=== PATIENT | female | born 1995 | race Caucasian/White ===

== ENCOUNTER → 2017-10-26 | Outpatient (CLI) | payer MEDICAID ==
--- NOTE | 2017-10-27 09:06 | XR ---
Left wrist HISTORY: Left wrist pain 4 views of the left wrist Bone mineralization, joint spaces and alignment are maintained. No fracture or dislocation. IMPRESSION: No bone abnormality. Consider wrist MRI.
== END | disposition home or self-care (01) ==
LOC: RADXRMAIN 16:06
PROVIDERS: ATTEND Family Medicine
DX: S63.502A Unspecified sprain of left wrist, initial encounter (principal)

== ENCOUNTER 2018-02-24 06:53 | Inpatient (IN) | payer OTHER ==
[2018-02-24] MEDS ORDERED: HYDROmorphone 1 MG/ML 1 ML SYRINGE IVP STA ×2 (07:11→07:40)
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
[2018-02-24 08:11] LABS: Basophils % (A) 1 %; Eosinophils # (A) 0.3 k/uL (0-0.7); Eosinophils % (A) 4 %; HCT 43.3 % (34.0-46.0); HGB 13.9 gm/dL (11.4-16.0); Lymphocytes # (A) 2.2 k/uL (1.0-4.8); Lymphocytes % (A) 33 %; MCH 28.5 pg (25.0-35.0); MCHC 32.2 g/dL (31.0-37.0); MCV 88.5 fL (80.0-100.0); Mean Platelet Volume 6.8; Monocytes # (A) 0.5 k/uL (0-1.0); Monocytes % (A) 8 %; Neutrophils # (A) 3.4 k/uL (1.3-7.7); Neutrophils % (A) 52 %; Platelet Count 328 k/uL (150-450); RBC 4.89 m/uL (3.80-5.40); RDW 12.9 % (11.5-15.5); WBC 6.6 k/uL (3.8-10.6)
[2018-02-24 08:16] LABS: Partial Thromboplastin Time 22.9 sec (22.0-30.0)
[2018-02-24 08:17] LABS: ALT 66 U/L (9-52); AST 107 U/L (14-36); Albumin 3.9 g/dL (3.5-5.0); Alcohol <10 mg/dL; Alkaline Phosphatase 94 U/L (38-126); Anion Gap 5 mmol/L; Blood Urea Nitrogen 14 mg/dL (7-17); Calcium 8.9 mg/dL (8.4-10.2); Carbon Dioxide 29 mmol/L (22-30); Chloride 104 mmol/L (98-107); Glucose 90 mg/dL (74-99); Potassium 4.7 mmol/L (3.5-5.1); Sodium 138 mmol/L (137-145); Total Bilirubin 0.4 mg/dL (0.2-1.3)
[2018-02-24] MEDS ORDERED: ACETAMINOPHEN IV (For NPO) 1,000 MG in EMPTY BAG 1 BAG IVPB STA (08:27)
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
[2018-02-24 08:38] LABS: Creatine Kinase 1099 U/L (30-135); Creatine Kinase MB 1.2 ng/mL (0.0-2.4); Troponin I <0.012 ng/mL (0.000-0.034)
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
[2018-02-24] MEDS ORDERED: NALOXONE 0.4 MG/ML 1 ML VIAL IV PRN (09:02)
[2018-02-24] MEDS ORDERED: HYDROmorphone 1 MG/ML 1 ML SYRINGE IVP PRN (09:02)
[2018-02-24] MEDS ORDERED: PANTOPRAZOLE 40 MG/10 ML VIAL IV SCH (09:15)
[2018-02-24 10:04] VITALS: BMI 21.4
[2018-02-24] MEDS: SODIUM CHLORIDE 0.9% 1,000 ML IV SCH (10:13)
[2018-02-24 10:24] LABS: Appearance,Urine Clear (Clear); Bilirubin,Urine Negative (Negative); Blood,Urine Negative (Negative); Color,Urine Yellow; Glucose,Urine (UA) Negative (Negative); Ketones,Urine Negative (Negative); Leukocyte Esterase,Urine Negative (Negative); Nitrite,Urine Negative (Negative); Protein,Urine Negative (Negative); Urobilinogen,Urine <2.0 mg/dL (<2.0)
[2018-02-24 10:32] LABS: Amphetamine Screen,Urine Detected (NotDetected); Barbiturate Screen,Urine Not Detected (NotDetected); Benzodiazepines Screen,Urine Not Detected (NotDetected); Cocaine Screen,Urine Not Detected (NotDetected); Methadone Screen, Urine Not Detected (NotDetected); Opiate Screen,Urine Detected (NotDetected); Oxycodone Screen, Urine Not Detected (NotDetected); Phencyclidine Screen,Urine Not Detected (NotDetected); Tricyclic Antidepressant,Urine Not Detected (NotDetected); Urn Cannabinoid Scrn Detected (NotDetected)
[2018-02-24 10:45] LABS: Specific Gravity,Urine 1.047 (1.001-1.035)
[2018-02-24] MEDS: HYDROmorphone 1 MG/ML 1 ML SYRINGE IVP PRN ×5 (10:48→22:36)
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
[2018-02-24] MEDS: ONDANSETRON 4 MG/2 ML VIAL IVP PRN (15:05)
[2018-02-24] MEDS: ACETAMINOPHEN TAB 325 MG TAB PO PRN (16:14)
[2018-02-25] MEDS: HYDROmorphone 1 MG/ML 1 ML SYRINGE IVP PRN ×9 (00:56→23:05)
[2018-02-25] MEDS: ACETAMINOPHEN TAB 325 MG TAB PO PRN (06:50)
[2018-02-25] MEDS: PANTOPRAZOLE 40 MG TABLET PO SCH (06:51)
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
[2018-02-25] MEDS: traMADol 50 MG TAB PO PRN ×2 (10:59→19:57)
[2018-02-25] MEDS: SODIUM CHLORIDE 0.9% 1,000 ML IV SCH (11:00)
[2018-02-25] MEDS: ONDANSETRON 4 MG/2 ML VIAL IVP PRN (12:45)
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
[2018-02-26] MEDS: HYDROmorphone 1 MG/ML 1 ML SYRINGE IVP PRN ×8 (01:26→23:29)
[2018-02-26] MEDS: ACETAMINOPHEN TAB 325 MG TAB PO PRN ×3 (01:27→23:30)
[2018-02-26] MEDS: PANTOPRAZOLE 40 MG TABLET PO SCH (08:03)
[2018-02-26] MEDS: SODIUM CHLORIDE 0.9% 1,000 ML IV SCH (10:33)
[2018-02-26] MEDS: ADDERALL PO SCH (10:33)
[2018-02-26] MEDS: traMADol 50 MG TAB PO PRN (10:42)
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
[2018-02-27] MEDS: HYDROmorphone 1 MG/ML 1 ML SYRINGE IVP PRN ×7 (01:46→20:23)
[2018-02-27] MEDS: traMADol 50 MG TAB PO PRN ×2 (02:55→10:58)
[2018-02-27] MEDS: ACETAMINOPHEN TAB 325 MG TAB PO PRN ×3 (05:08→17:07)
[2018-02-27] MEDS: ADDERALL PO SCH (07:59)
[2018-02-27] MEDS: SODIUM CHLORIDE 0.9% 1,000 ML IV SCH (08:00)
[2018-02-27] MEDS: PANTOPRAZOLE 40 MG TABLET PO SCH (09:17)
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
[2018-02-27] MEDS ORDERED: MORPHINE SULFATE 4 MG/ML SYRINGE IV PRN (17:57)
[2018-02-27] MEDS ORDERED: ONDANSETRON 4 MG/2 ML VIAL IVP PRN (17:57)
[2018-02-27] MEDS ORDERED: DEXAMETHASONE SOD PHOSPHATE 10 MG/ML 1 ML VIAL IV ONE (17:57)
[2018-02-27] MEDS ORDERED: ONDANSETRON 4 MG/2 ML VIAL IVP ONE (17:57)
[2018-02-27] MEDS ORDERED: CALCIUM CARBONATE 500 MG CHEWABLE PO PRN (20:19)
[2018-02-27] MEDS: ONDANSETRON 4 MG/2 ML VIAL IVP PRN (21:12)
[2018-02-28] MEDS: HYDROmorphone 1 MG/ML 1 ML SYRINGE IVP PRN ×6 (01:00→22:20)
[2018-02-28] MEDS: SODIUM CHLORIDE 0.9% 1,000 ML IV SCH ×4 (06:59→23:01)
[2018-02-28] MEDS: PANTOPRAZOLE 40 MG TABLET PO SCH (08:19)
[2018-02-28] MEDS: ADDERALL PO SCH (08:20)
[2018-02-28 10:41] LABS: Basophils % (A) 0 %; Eosinophils # (A) 0.2 k/uL (0-0.7); Eosinophils % (A) 2 %; HCT 40.2 % (34.0-46.0); HGB 13.3 gm/dL (11.4-16.0); Lymphocytes # (A) 1.6 k/uL (1.0-4.8); Lymphocytes % (A) 23 %; MCH 28.9 pg (25.0-35.0); MCHC 33.1 g/dL (31.0-37.0); MCV 87.5 fL (80.0-100.0); Mean Platelet Volume 6.2; Monocytes # (A) 0.5 k/uL (0-1.0); Monocytes % (A) 7 %; Neutrophils # (A) 4.6 k/uL (1.3-7.7); Neutrophils % (A) 66 %; Platelet Count 307 k/uL (150-450); RDW 12.5 % (11.5-15.5); WBC 7.1 k/uL (3.8-10.6)
[2018-02-28] MEDS: LACTATED RINGERS 1,000 ML IV SCH ×2 (15:13→23:01)
[2018-02-28] MEDS ORDERED: ceFAZolin IN SWFI 2 GM/20 ML SYRINGE IVP ONE (15:30)
[2018-02-28] MEDS ORDERED: fentaNYL (PF) 50 MCG/ML 2 ML AMP IVP ONE (15:41)
[2018-02-28] MEDS ORDERED: BACITRACIN 50,000 UNIT, POLYMYXIN B 500,000 UNIT in SODIUM CHLORIDE 0.9% IRRIGATIO 1,00... IRRIGATION ONE (16:32)
[2018-02-28] MEDS ORDERED: HEPARIN SODIUM,PORCINE 10,000 UNIT/ML 1 ML VIAL ONE (16:44)
[2018-02-28] MEDS ORDERED: PROPOFOL 10 MG/ML 20 ML VIAL IV ONE (16:44)
[2018-02-28] MEDS ORDERED: fentaNYL (PF) 50 MCG/ML 2 ML AMP ONE (16:44)
[2018-02-28] MEDS ORDERED: ONDANSETRON 4 MG/2 ML VIAL ONE (16:44)
[2018-02-28] MEDS ORDERED: SODIUM CHLORIDE 0.9% IRRIG 1,000 ML BTL IRRIGATION ONE (16:44)
[2018-02-28] MEDS ORDERED: NEOSTIGMINE 1 MG/ML 10 ML VIAL ONE (16:44)
[2018-02-28] MEDS ORDERED: LIDOCAINE 1% INJ 10MG/ML (20 ML MDV) ONE (16:44)
[2018-02-28] MEDS ORDERED: GLYCOPYRROLATE 0.2 MG/ML 2 ML VIAL ONE (16:44)
[2018-02-28] MEDS ORDERED: ROCURONIUM BROMIDE 10 MG/ML 10 ML VIAL IV ONE (16:44)
[2018-02-28] MEDS ORDERED: MIDAZOLAM 2 MG/2 ML VIAL ONE (16:44)
[2018-02-28] MEDS ORDERED: BUPIVACAINE-EPI 0.5%-1:200,000 10 ML VIAL SQ ONE (17:46)
[2018-02-28] MEDS ORDERED: THROMBIN (BOVINE) 5,000 UNIT VIAL TOPICAL ONE (17:48)
[2018-02-28] MEDS ORDERED: GELATIN SPONGE,ABSORB (LARGE) 1 EACH SPONGE TOPICAL ONE (17:49)
[2018-02-28] MEDS ORDERED: LACTATED RINGERS 1,000 ML IV ONE (19:08)
[2018-02-28] MEDS ORDERED: MAGNESIUM HYDROXIDE 2,400 MG/10 ML CUP PO PRN (19:09)
[2018-02-28] MEDS ORDERED: HYDROmorphone 1 MG/ML 1 ML SYRINGE IVP PRN (19:09)
[2018-02-28] MEDS ORDERED: HYDROcodone/APAP 5-325MG 1 EACH TAB PO PRN (19:09)
[2018-02-28] MEDS ORDERED: BENZOCAINE/MENTHOL LOZENG 1 EACH LOZENGE MUCOUS MEM PRN (19:09)
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
[2018-02-28] MEDS: HYDROmorphone 0.5 MG/0.5 ML SYRINGE IVP PRN ×4 (19:52→20:15)
[2018-02-28] MEDS ORDERED: ONDANSETRON 4 MG/2 ML VIAL IVP ONE (19:56)
[2018-02-28] MEDS: ceFAZolin IN SWFI 2 GM/20 ML SYRINGE IVP SCH (23:41)
[2018-03-01] MEDS: HYDROmorphone 1 MG/ML 1 ML SYRINGE IVP PRN ×8 (00:36→22:10)
[2018-03-01] MEDS: HYDROcodone/APAP 5-325MG 1 EACH TAB PO PRN ×3 (01:03→10:12)
[2018-03-01] MEDS: traMADol 50 MG TAB PO PRN ×3 (02:50→19:35)
[2018-03-01] MEDS: ACETAMINOPHEN TAB 325 MG TAB PO PRN (02:51)
[2018-03-01 07:35] LABS: Basophils % (A) 0 %; Eosinophils # (A) 0.1 k/uL (0-0.7); Eosinophils % (A) 2 %; HCT 40.7 % (34.0-46.0); Lymphocytes # (A) 1.2 k/uL (1.0-4.8); Lymphocytes % (A) 15 %; MCH 28.5 pg (25.0-35.0); MCHC 31.8 g/dL (31.0-37.0); MCV 89.5 fL (80.0-100.0); Mean Platelet Volume 6.9; Monocytes # (A) 0.5 k/uL (0-1.0); Monocytes % (A) 6 %; Neutrophils # (A) 6.4 k/uL (1.3-7.7); Neutrophils % (A) 76 %; Platelet Count 310 k/uL (150-450); RBC 4.54 m/uL (3.80-5.40); RDW 12.6 % (11.5-15.5); WBC 8.5 k/uL (3.8-10.6)
[2018-03-01] MEDS: SENNOSIDES-DOCUSATE SODIUM 1 EACH TAB PO SCH (08:01)
[2018-03-01] MEDS: PANTOPRAZOLE 40 MG TABLET PO SCH (08:01)
--- NOTE | 2018-03-01 08:46 | XR ---
EXAM TYPE: LUMBAR SPINE X RAY SERIES COMPARISON: NONE HISTORY: Intraoperative TECHNIQUE: One views are submitted. FINDINGS: Single intraoperative image demonstrates to portions of the lumbar vertebral column with overlying me tallic wires or leads. IMPRESSION: 1. Intraoperative image.
[2018-03-01] MEDS ORDERED: HYDROmorphone 1 MG/ML 1 ML SYRINGE IVP PRN (08:48)
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
[2018-03-01] MEDS: SODIUM CHLORIDE 0.9% 1,000 ML IV SCH (09:16)
[2018-03-01] MEDS: ceFAZolin IN SWFI 2 GM/20 ML SYRINGE IVP SCH (09:16)
--- NOTE | 2018-03-01 10:12 | FL ---
EXAMINATION TYPE: FL guidance operating room DATE OF EXAM: 02/28/2018 HISTORY: Flouroscopy time 1 minute and 33 seconds of fluoroscopy provided. IMPRESSION: 1. Fluoroscopy time.
[2018-03-01] MEDS: CYCLOBENZAPRINE 10 MG TAB PO PRN ×2 (14:52→21:14)
[2018-03-01] MEDS ORDERED: HYDROcodone/APAP 7.5-325MG 1 EACH TAB PO PRN (16:43)
[2018-03-01] MEDS: HYDROcodone/APAP 7.5-325MG 1 EACH TAB PO PRN (16:48)
[2018-03-01] MEDS: LACTATED RINGERS 1,000 ML IV SCH (18:18)
[2018-03-02] MEDS: HYDROcodone/APAP 7.5-325MG 1 EACH TAB PO PRN ×4 (00:45→18:43)
[2018-03-02] MEDS: SODIUM CHLORIDE 0.9% 1,000 ML IV SCH ×3 (01:25→13:55)
[2018-03-02] MEDS: HYDROmorphone 1 MG/ML 1 ML SYRINGE IVP PRN ×2 (01:25→04:56)
[2018-03-02] MEDS: PANTOPRAZOLE 40 MG TABLET PO SCH (08:07)
[2018-03-02] MEDS: SENNOSIDES-DOCUSATE SODIUM 1 EACH TAB PO SCH (08:08)
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
[2018-03-02] MEDS: CYCLOBENZAPRINE 10 MG TAB PO PRN ×2 (09:47→20:25)
[2018-03-02] MEDS: LACTATED RINGERS 1,000 ML IV SCH (10:15)
[2018-03-03] MEDS: HYDROcodone/APAP 7.5-325MG 1 EACH TAB PO PRN ×3 (00:51→13:36)
[2018-03-03] MEDS: SODIUM CHLORIDE 0.9% 1,000 ML IV SCH ×2 (00:51→09:49)
[2018-03-03] MEDS: CYCLOBENZAPRINE 10 MG TAB PO PRN (09:48)
[2018-03-03] MEDS: PANTOPRAZOLE 40 MG TABLET PO SCH (09:48)
[2018-03-03] MEDS: SENNOSIDES-DOCUSATE SODIUM 1 EACH TAB PO SCH (09:48)
[2018-03-03 13:59] VITALS: TEMP 98.5
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
[2018-03-03 14:57] VITALS: BP 94/62; PULSE 103; RESP 17
== END 2018-03-03 16:41 | disposition home or self-care (01) | DRG 520 ==
LOC: EC 06:53 → 3SUR 09:03
PROVIDERS: ADMIT Orthopaedic Surgery Orthopaedic Surgery of the Spine; ATTEND Orthopaedic Surgery Orthopaedic Surgery of the Spine
PROC: 01NB0ZZ Release Lumbar Nerve, Open Approach (ICD-10-PCS; 2018-02-28)
PROC: 30233N0 Transfusion of Autologous Red Blood Cells into Peripheral Vein, Percutaneous Approach (ICD-10-PCS; 2018-02-28)
PROC: 0QS004Z Reposition Lumbar Vertebra with Internal Fixation Device, Open Approach (ICD-10-PCS; principal; 2018-02-28 08:00)
DX: S32.022A Unstable burst fracture of second lumbar vertebra, initial encounter for closed fracture (principal); M54.16 Radiculopathy, lumbar region; M48.061 Spinal stenosis, lumbar region without neurogenic claudication; M62.830 Muscle spasm of back; F17.200 Nicotine dependence, unspecified, uncomplicated; Z71.6 Tobacco abuse counseling; Z79.899 Other long term (current) drug therapy; Z86.59 Personal history of other mental and behavioral disorders; Z90.49 Acquired absence of other specified parts of digestive tract; Z80.9 Family history of malignant neoplasm, unspecified; V48.5XXA Car driver injured in noncollision transport accident in traffic accident, initial encounter; Y92.410 Unspecified street and highway as the place of occurrence of the external cause
CPT/HCPCS: 36415; 70450; 71045; 71260; 72100; 72125; 72148; 72170; 74177; 80053; 80306; 80320; 81003; 81025; 82550; 82553; 84484; 85025; 85610; 85730; 86850; 86891; 86900; 86901; 93005; 96374; 96375; 99285

== ENCOUNTER 2018-06-23 16:40 | Emergency (ER) | payer OTHER ==
[2018-06-23] MEDS ORDERED: MORPHINE SULFATE 4 MG/ML SYRINGE ONE ×2 (17:45)
--- NOTE | 2018-06-25 08:07 | CT ---
EXAMINATION TYPE: CT thoracic and lumbar spine without contrast DATE OF EXAM: 06/23/2018 COMPARISON: None HISTORY: 22-year-old female lower back pain after hearing a pop when bending forward. Surgery last January. TECHNIQUE: Contiguous axial scanning of the thoracic and lumbar spine without contrast. Coronal/sagittal reconstructions performed. CT DLP: 678.4mGycm. Automatic exposure control utilized for a dose reduction. FINDINGS: Thoracic spine: Cholecystectomy clips are present. Visualized lungs are clear. No prevertebral or paravertebral soft tissue abnormality seen. Vertebral body heights are preserved and alignment is maintained. By CT, no large focal disc herniation is seen. No evident spinal canal and neuroforaminal stenosis. Lumbar spine: Post surgical changes of L1-L3 posterior fusion. Transpedicular screws at both of these levels and the vertical stabilization rods appear intact. However, there is mild anterior wedging of L2 which a chronic appearance. However, there is a fracture of the posterior superior corner which has a more acute appearance on sagittal images but appears chronic on both axial and coronal images. This can be correlated with patient's outside priors to assess for stability. Retropulsion results in mild spinal canal stenosis opposite the L2 level. Remaining vertebral body heights are maintained. Alignment is preserved. IMPRESSION: 1. Thoracic spine: No vertebral compression collapse or malalignment. 2. Lumbar spine: Posterior fusion hardware from L1 through L3 levels bridging a chronic anterior wedge deformity of L2. The orthopedic hardware itself appears uncomplicated. However, there is an additional fracture along the posterior superior endplate of L2 with retropulsion into the spinal canal causing mild spinal canal stenosis at this level. Coronal and axial images suggests a chronic rather than acute fracture here. Recommend comparison to any available outside priors to ensure that this relates to the patient's old injury and not to a new, superimposed acute injury. Initial report signed off at 7:40pm. The following addendum issued at 8:51pm. There was an error in matching the patient in the system. After correction, patient's MRI lumbar spine of 02/24/2018 is available for review. The retropulsed fragment was acute at the time of prior MRI lumbar spine. On the current study, this is compatible with now chronic healed compression deformity with persistent, partially united, retropulsed fragment and secondary mild or moderate spinal canal stenosis due to the retropulsion. No acute change is identified. [facility]
== END 2018-06-23 20:35 | disposition home or self-care (01) ==
LOC: EC 16:40
DX: S39.012A Strain of muscle, fascia and tendon of lower back, initial encounter (principal); F17.200 Nicotine dependence, unspecified, uncomplicated; Z87.81 Personal history of (healed) traumatic fracture; Z98.890 Other specified postprocedural states; X50.9XXA Other and unspecified overexertion or strenuous movements or postures, initial encounter
CPT/HCPCS: 72128; 72131; 96374; 96376; 99283

== ENCOUNTER → 2018-07-04 | Outpatient (CLI) | payer OTHER ==
--- NOTE | 2018-07-04 16:52 | MR ---
EXAMINATION TYPE: MR lumbar spine wo/w con DATE OF EXAM: 07/04/2018 COMPARISON: 06/23/2018 CT HISTORY: WEDGE COMPRESSION FRACTURE, LUMBAR CONTRAST: 5.5 mL intravenous Gadavist. TECHNIQUE: Multiplanar, multisequence images of the lumbar spine were acquired. FINDINGS: L5-S1: No significant disc bulge or disc herniation. No spinal canal stenosis. No foraminal stenosi s. Neural foramen are patent.. L4-L5: No significant disc bulge or disc herniation. No spinal canal stenosis. No foraminal stenosi s. Neural foramen are patent.. L3-L4: No significant disc bulge or disc herniation. No spinal canal stenosis. No foraminal stenosi s. Neural foramen are patent.. L2-L3: No significant disc bulge or disc herniation. No spinal canal stenosis. No foraminal stenosi s. Neural foramen are patent.. L1-L2: Broad-based bulging is present with moderate anterior thecal sac compression. This could be fr om residual disc material. This could be related to the fracture fragment identified 06/23/2018 CT exa mination. No AP spinal canal stenosis is evident. This is a limited examination due to beam hardening artifact at this level. Spinal canal stenosis is not identified. Neural foramen cannot be well evalu ated. Compression deformity of L2 is present. T12-L1: No significant disc bulge or disc herniation. No spinal canal stenosis. No foraminal stenos is. Neural foramen are patent.. No abnormal enhancement. Pedicle screws are present L1 and L3. IMPRESSION: 1. Bulging with moderate anterior thecal sac compression without stenosis appears to be present L1-L2 . It is unclear whether this is related to a prior fracture fragment or residual disc bulging.
== END | disposition home or self-care (01) ==
LOC: RADMRIMAIN 13:00
PROVIDERS: ATTEND Orthopaedic Surgery Orthopaedic Surgery of the Spine
DX: M51.26 Other intervertebral disc displacement, lumbar region (principal); F17.200 Nicotine dependence, unspecified, uncomplicated; Z98.1 Arthrodesis status
CPT/HCPCS: 72158; A9585

== ENCOUNTER → 2019-05-23 | Outpatient (CLI) | payer OTHER ==
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
== END | disposition home or self-care (01) ==
LOC: SLEEP 13:29
PROVIDERS: ATTEND Internal Medicine
DX: R06.83 Snoring (principal); G25.81 Restless legs syndrome; G47.61 Periodic limb movement disorder; F41.9 Anxiety disorder, unspecified; F17.210 Nicotine dependence, cigarettes, uncomplicated; R00.2 Palpitations; F32.9 Major depressive disorder, single episode, unspecified; R35.1 Nocturia; Z90.49 Acquired absence of other specified parts of digestive tract; Z98.890 Other specified postprocedural states; Z79.1 Long term (current) use of non-steroidal anti-inflammatories (NSAID); Z79.899 Other long term (current) drug therapy
CPT/HCPCS: 99211

== ENCOUNTER → 2019-08-12 | Outpatient (CLI) | payer OTHER ==
[2019-08-12 11:02] LABS: Basophils # (A) 0.1 k/uL (0-0.2); Basophils % (A) 1 %; Eosinophils # (A) 0.4 k/uL (0-0.7); Eosinophils % (A) 3 %; Lymphocytes # (A) 1.9 k/uL (1.0-4.8); Lymphocytes % (A) 19 %; MCH 27.5 pg (25.0-35.0); MCHC 31.6 g/dL (31.0-37.0); MCV 86.8 fL (80.0-100.0); Mean Platelet Volume 6.8; Monocytes # (A) 0.4 k/uL (0-1.0); Monocytes % (A) 4 %; Neutrophils # (A) 7.5 k/uL (1.3-7.7); Neutrophils % (A) 72 %; Platelet Count 410 k/uL (150-450); RBC 4.72 m/uL (3.80-5.40); RDW 13.7 % (11.5-15.5); WBC 10.4 k/uL (3.8-10.6)
[2019-08-12 11:10] LABS: African American GFR (CKD) >90 (>60 ml/min/1.73 sqM); Anion Gap 7 mmol/L; Blood Urea Nitrogen 10 mg/dL (7-17); Calcium 9.4 mg/dL (8.4-10.2); Carbon Dioxide 21 mmol/L (22-30); Chloride 111 mmol/L (98-107); Glucose 97 mg/dL (74-99); Non-African American GFR(CKD) >90 (>60 ml/min/1.73 sqM); Potassium 4.4 mmol/L (3.5-5.1); Sodium 139 mmol/L (137-145)
[2019-08-12 11:14] LABS: INR 0.9 (<1.2); Partial Thromboplastin Time 23.9 sec (22.0-30.0); Prothrombin Time 9.7 sec (9.0-12.0)
--- NOTE | 2019-08-12 11:59 | XR ---
EXAMINATION TYPE: XR chest 2V DATE OF EXAM: 08/12/2019 COMPARISON: Prior chest x-ray 02/24/2018 HISTORY: Z01.818, preop back surgery TECHNIQUE: Frontal and lateral views of the chest are obtained. FINDINGS: There is no focal air space opacity, pleural effusion, or pneumothorax seen. The cardiac silhouette size is within normal limits. The osseous structures are remarkable for anterior wedge c ompression deformity noted in the lumbar spine L2, postop changes are noted to the lumbar spine, ther e is a slight spinal curvature in the thoracic spine. Surgical clips are present in the right upper q uadrant. IMPRESSION: No acute cardiopulmonary process.
[2019-08-12 12:45] LABS: Amorphous Sediment,Urine Rare /hpf; Appearance,Urine Cloudy (Clear); Bacteria,Urine Rare /hpf; Bilirubin,Urine Negative (Negative); Blood,Urine Negative (Negative); Color,Urine Yellow; Glucose,Urine (UA) Negative (Negative); Ketones,Urine Negative (Negative); Leukocyte Esterase,Urine Negative (Negative); Mucus,Urine Moderate /hpf; Nitrite,Urine Negative (Negative); Protein,Urine Trace (Negative); Specific Gravity,Urine 1.024 (1.001-1.035); Squamous Epithelial Cell,Urine 12 /hpf (0-4); Urobilinogen,Urine <2.0 mg/dL (<2.0)
== END | disposition home or self-care (01) ==
LOC: LABPAT 09:49
PROVIDERS: ATTEND Orthopaedic Surgery Orthopaedic Surgery of the Spine
DX: Z01.818 Encounter for other preprocedural examination (principal); M54.5 Low back pain; T85.898A Other specified complication of other internal prosthetic devices, implants and grafts, initial encounter
CPT/HCPCS: 71046; 80048; 81001; 85025; 85610; 85730

== ENCOUNTER → 2019-11-04 | Outpatient (CLI) | payer OTHER ==
[2019-11-04 11:01] LABS: HCT 38.6 % (34.0-46.0); HGB 12.7 gm/dL (11.4-16.0); MCH 28.3 pg (25.0-35.0); MCHC 32.9 g/dL (31.0-37.0); MCV 86.1 fL (80.0-100.0); Platelet Count 373 k/uL (150-450); RBC 4.48 m/uL (3.80-5.40); RDW 13.8 % (11.5-15.5); WBC 6.2 k/uL (3.8-10.6)
[2019-11-04 11:05] LABS: INR 0.9 (<1.2); Partial Thromboplastin Time 23.4 sec (22.0-30.0); Prothrombin Time 9.4 sec (9.0-12.0)
[2019-11-04 11:09] LABS: African American GFR (CKD) >90 (>60 ml/min/1.73 sqM); Anion Gap 6 mmol/L; Blood Urea Nitrogen 8 mg/dL (7-17); Calcium 9.1 mg/dL (8.4-10.2); Carbon Dioxide 22 mmol/L (22-30); Chloride 110 mmol/L (98-107); Glucose 81 mg/dL (74-99); Non-African American GFR(CKD) >90 (>60 ml/min/1.73 sqM); Potassium 4.6 mmol/L (3.5-5.1); Sodium 138 mmol/L (137-145)
[2019-11-04 11:21] LABS: Appearance,Urine Clear (Clear); Bilirubin,Urine Negative (Negative); Blood,Urine Negative (Negative); Color,Urine Light Yellow; Glucose,Urine (UA) Negative (Negative); Ketones,Urine Negative (Negative); Leukocyte Esterase,Urine Negative (Negative); Nitrite,Urine Negative (Negative); PH, Urine 6.5 (5.0-8.0); Protein,Urine Negative (Negative); Specific Gravity,Urine 1.008 (1.001-1.035); Urobilinogen,Urine <2.0 mg/dL (<2.0)
== END | disposition home or self-care (01) ==
LOC: LABPAT 09:56
PROVIDERS: ATTEND Orthopaedic Surgery Orthopaedic Surgery of the Spine
DX: Z01.818 Encounter for other preprocedural examination (principal); M54.5 Low back pain
CPT/HCPCS: 80048; 81003; 85027; 85610; 85730

== ENCOUNTER 2019-11-06 10:22 | Day surgery (SDC) | payer OTHER ==
[2019-11-05 09:14] VITALS: BMI 27.2
[~2019-11-06 10:22] MED LIST: DEXAMETHASONE SOD PHOSPHATE 10 MG/ML 1 ML VIAL IV ONE; HYDROmorphone 0.5 MG/0.5 ML SYRINGE IVP PRN; LACTATED RINGERS 1,000 ML IV SCH; ONDANSETRON 4 MG/2 ML VIAL IVP ONE
[2019-11-06] MEDS ORDERED: LIDOCAINE 1% (10MG/ML) FOR IV START INTRADERMA ONE (10:56)
[2019-11-06] MEDS ORDERED: SUCCINYLCHOLINE CHLORIDE 100 MG/5 ML SYR IV ONE (12:41)
[2019-11-06] MEDS ORDERED: PROPOFOL 10 MG/ML 20 ML VIAL IV ONE (12:41)
[2019-11-06] MEDS ORDERED: ONDANSETRON 4 MG/2 ML VIAL ONE (12:41)
[2019-11-06] MEDS ORDERED: MIDAZOLAM 2 MG/2 ML VIAL ONE (12:41)
[2019-11-06] MEDS ORDERED: fentaNYL (PF) 50 MCG/ML 2 ML AMP ONE (12:41)
[2019-11-06] MEDS ORDERED: KETOROLAC 30 MG/ML 1 ML VIAL ONE (12:41)
[2019-11-06] MEDS ORDERED: LIDOCAINE 1% INJ 10MG/ML (20 ML MDV) ONE (12:41)
[2019-11-06] MEDS ORDERED: HYDROmorphone (PF) 1 MG/ML ONE (12:41)
[2019-11-06] MEDS ORDERED: diphenhydrAMINE 50 MG/ML 1 ML VIAL IVP ONE ×2 (13:15→16:15)
[2019-11-06] MEDS ORDERED: BUPIVACAIN-EPI 0.25%-1:200,000 30 ML VIAL SQ ONE ×2 (13:15→14:24)
[2019-11-06] MEDS ORDERED: tiZANidine 4 MG TAB PO PRN (14:55)
[2019-11-06] MEDS ORDERED: HYDROmorphone 0.5 MG/0.5 ML SYRINGE IVP PRN (14:55)
[2019-11-06] MEDS ORDERED: HYDROmorphone 1 MG/ML 1 ML SYRINGE IVP PRN (14:55)
[2019-11-06] MEDS ORDERED: BENZOCAINE/MENTHOL LOZENG 1 EACH LOZENGE MUCOUS MEM PRN (14:55)
[2019-11-06] MEDS ORDERED: HYDROcodone/APAP 5-325MG 1 EACH TAB PO PRN ×2 (14:56)
[2019-11-06] MEDS ORDERED: KETOROLAC 30 MG/ML 1 ML VIAL IVP PRN (14:56)
--- NOTE | 2019-11-06 14:57 | FL ---
Fluoroscopy HISTORY: Hardware removal 55 seconds fluoroscopy time supplied to the referring clinician. 3 intraoperative C-arm images docum ent the procedure. See dictated report from orthopedic surgery.
[2019-11-06 15:00] VITALS: TEMP 97.1
[2019-11-06] MEDS ORDERED: SODIUM CHLORIDE 0.9% 1,000 ML IV SCH (15:00)
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
[2019-11-06] MEDS ORDERED: ONDANSETRON 4 MG/2 ML VIAL IVP ONE (15:30)
[2019-11-06] MEDS ORDERED: LACTATED RINGERS 1,000 ML IV ONE (15:54)
[2019-11-06 16:36] VITALS: RESP 16
[2019-11-06 17:25] VITALS: BP 110/77; PULSE 78
[2019-11-06] MEDS ORDERED: SCOPOLAMINE 1.5MG/72HR PATCH TRANSDERM ONE (17:47)
[2019-11-06] MEDS ORDERED: ONDANSETRON 4 MG TAB PO STA (17:48)
[2019-11-06] MEDS ORDERED: QUEtiapine 50 MG TAB PO SCH (21:00)
[2019-11-07] MEDS ORDERED: SENNOSIDES-DOCUSATE SODIUM 1 EACH TAB PO SCH (09:00)
[2019-11-07] MEDS ORDERED: DULoxetine HCL 60 MG CAPSULE.DR PO SCH (09:00)
[2019-11-07] MEDS ORDERED: LORATADINE 10 MG TAB PO SCH (09:00)
[2019-11-07] MEDS ORDERED: MONTELUKAST 10 MG TAB PO SCH (09:00)
== END 2019-11-06 18:22 | disposition home or self-care (01) ==
LOC: OR 10:22
PROVIDERS: ATTEND Orthopaedic Surgery Orthopaedic Surgery of the Spine
DX: T84.498A Other mechanical complication of other internal orthopedic devices, implants and grafts, initial encounter (principal); S32.021D Stable burst fracture of second lumbar vertebra, subsequent encounter for fracture with routine healing; V49.0 Driver injured in collision with other and unspecified motor vehicles in nontraffic accident; G89.29 Other chronic pain; M54.16 Radiculopathy, lumbar region; K21.9 Gastro-esophageal reflux disease without esophagitis; E66.3 Overweight; F17.200 Nicotine dependence, unspecified, uncomplicated; Z98.1 Arthrodesis status; Z79.1 Long term (current) use of non-steroidal anti-inflammatories (NSAID); Z79.899 Other long term (current) drug therapy; Z90.89 Acquired absence of other organs; Z90.49 Acquired absence of other specified parts of digestive tract; Z98.890 Other specified postprocedural states; Z88.0 Allergy status to penicillin; Z82.49 Family history of ischemic heart disease and other diseases of the circulatory system; Z68.26 Body mass index [BMI] 26.0-26.9, adult
CPT/HCPCS: 81025; 86900; 86901; 86850; 20680; J2250; J1200; J0690; J2405; J2001; J3010; J1885; J1170 ×2; J0330; J2704

== ENCOUNTER 2019-11-22 17:23 | Emergency (ER) | payer OTHER ==
[2019-11-22] MEDS ORDERED: SODIUM CHLORIDE 0.9% 1,000 ML IV ONE (18:19)
[2019-11-22] MEDS ORDERED: SODIUM CHLORIDE 0.9% 1,000 ML IV SCH (18:30)
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
[2019-11-22 18:58] LABS: Basophils % (A) 1 %; Eosinophils # (A) 0.6 k/uL (0-0.7); Eosinophils % (A) 8 %; HGB 12.7 gm/dL (11.4-16.0); Lymphocytes % (A) 26 %; MCH 28.1 pg (25.0-35.0); MCHC 32.7 g/dL (31.0-37.0); Monocytes # (A) 0.3 k/uL (0-1.0); Monocytes % (A) 4 %; Neutrophils # (A) 4.6 k/uL (1.3-7.7); Neutrophils % (A) 60 %; Platelet Count 450 k/uL (150-450); RBC 4.53 m/uL (3.80-5.40); RDW 14.2 % (11.5-15.5); WBC 7.6 k/uL (3.8-10.6)
[2019-11-22] MEDS ORDERED: KETOROLAC 30 MG/ML 1 ML VIAL IVP STA (19:05)
[2019-11-22 19:13] LABS: ALT 18 U/L (4-34); AST 38 U/L (14-36); African American GFR (CKD) >90 (>60 ml/min/1.73 sqM); Albumin 3.7 g/dL (3.5-5.0); Alkaline Phosphatase 150 U/L (38-126); Anion Gap 5 mmol/L; Blood Urea Nitrogen 6 mg/dL (7-17); Carbon Dioxide 21 mmol/L (22-30); Chloride 110 mmol/L (98-107); Glucose 113 mg/dL (74-99); Non-African American GFR(CKD) >90 (>60 ml/min/1.73 sqM); Potassium 4.4 mmol/L (3.5-5.1); Sodium 136 mmol/L (137-145); Total Bilirubin 0.3 mg/dL (0.2-1.3); Total Protein 6.8 g/dL (6.3-8.2)
[2019-11-22 21:00] VITALS: BP 115/90; PULSE 78; RESP 14; TEMP 98.6
== END 2019-11-22 20:57 | disposition home or self-care (01) ==
LOC: EC 17:23
DX: G89.18 Other acute postprocedural pain (principal); T81.30XA Disruption of wound, unspecified, initial encounter; F17.200 Nicotine dependence, unspecified, uncomplicated; F41.9 Anxiety disorder, unspecified; Z79.899 Other long term (current) drug therapy
CPT/HCPCS: 36415; 80053; 83605; 85025; 87040; 87070; 87205; 99284; 96374; 96361 ×2; J1885; 87077; 87186

== ENCOUNTER → 2020-01-23 | Outpatient (CLI) | payer OTHER ==
--- NOTE | 2020-01-24 07:05 | US ---
EXAMINATION TYPE: Transabdominal DATE OF EXAM: 01/23/2020 4:22 PM COMPARISON: NONE CLINICAL HISTORY: Z36 confirm dates. Confirm dates EXAM PERFORMED: Transabdominal (TA) EXAM MEASUREMENTS: GESTATIONAL AGE / DATING Physician Established: Not yet established Dates by LMP: (11 weeks/1 days) EDC: 08/12/2020 Dates by First Scan: No previous this is first scan Dates by Current Scan for: (10 weeks/6 days) EDC: 08/14/2020 MATERNAL ANATOMY Uterus: 10.0 x 6.7 x 8.2 cm Right Ovary: 3.0 x 1.8 x 2.2 cm Left Ovary: 3.2 x 1.7 x 1.8 cm Post CDS / Adnexa: wnl Presence of free fluid: no Presence of corpus luteal cyst: no Presence of subchorionic bleed: no GESTATION / SURVEY CRL: 3.9 cm (10 weeks/6 days) Heart Rate: 165 bpm Rhythm: Normal IUP: Viable IUP Beta HcG (if available): Not available at this time IMPRESSION: Single viable .
== END | disposition home or self-care (01) ==
LOC: RADUSWWP 16:06
PROVIDERS: ATTEND Obstetrics & Gynecology
DX: Z36.9 Encounter for antenatal screening, unspecified (principal); Z3A.11 11 weeks gestation of pregnancy
CPT/HCPCS: 76801

== ENCOUNTER 2020-05-25 18:57 | Outpatient (CLI) | payer OTHER ==
[2020-05-25 19:53] VITALS: BP 128/82; PULSE 109; RESP 16; TEMP 97.2
--- NOTE | 2020-05-26 06:32 | P.MSEPDOC ---
Presenting Problems - Arrival Data Date of Arrival on Unit: 05/25/20 Time of Arrival on Unit: 18:57 Mode of Transport: Ambulatory - Complaint OB-Reason for Admission/Chief Complaint: Other Comment: PAtient reports to triage after performing a doppler at home and noting heart rate at 170bpm, but then later returning to 140bpm. Patient also reports back pain in lower back that is sharp and comes and goes. Medical History - Information : 2 Para: 0 - Gestational Age Gestational Age by CARLEE (wks/days): 28 Weeks and 5 Days Review of Systems - Review of Systems Constitutional: No problems Breast: No problems ENT: No problems Cardiovascular: No problems Respiratory: No problems Gastrointestinal: No problems Genitourinary: No problems Musculoskeletal: No problems Neurological: No problems Skin: No problems Vital Signs - Temperature Temperature: 97.2 F Temperature Source: Temporal Artery Scan - Pulse Right Brachial Pulse Rate: 109 Pulse Assessment Method: Automatic Cuff - Respirations Respiratory Rate: 16 Oxygen Delivery Method: Room Air - Blood Pressure Right Arm Blood Pressure: 128/82 Blood Pressure Mean: 97 Blood Pressure Source: Automatic Cuff Medical Screen Scoring (Pre) - Cervical Exam Dilation: Exam Deferred Effacement: Exam Deferred Membranes: Intact - Uterine Contractions Frequency: N/A Duration: N/A Intensity: N/A - Maternal Vital Signs Maternal Temperature: N/A Maternal Blood Pressure: N/A Signs of Preeclampsia: N/A Maternal Respirations: N/A - Maternal Trauma Maternal Trauma: N/A - Assessment - Baby A Baseline FHR: 115 Heart Rate - NICHD Category: Category I (Normal) = 0 NST: Reactive Position: N/A Station: N/A - Total Score - Baby A Total Score - Baby A: 0 - Total Score - Baby B Total Score - Baby B: 0 - Total Score - Baby C Total Score - Baby C: 0 - Level of Risk - Baby A Level of Risk - Baby A: Low (0-5) - Level of Risk - Baby B Level of Risk - Baby B: Low (0-5) - Level of Risk - Baby C Level of Risk - Baby C: Low (0-5) Physician Notification (Pre) - Physician Notified Physician Notified Date: 05/25/20 Physician Notified Time: 19:15 New Order Received: Yes - Notification Comment Comment: Dr. De La Rosa on unit. Patient to be watched for 30 minutes and is approved for. discharge if heart tones are wnl. Patient to take tylenol for back pain as needed. Disposition - Disposition OB Disposition: Discharge to home Discharge Date: 05/25/20 Discharge Time: 19:52 I agree with the RN Medical Screening Exam: Yes Risk & Benefit of care provided described in d/c instruction: Yes Diagnosis: LOW BACK PAIN (Patient appears to have low back pain of . No evidence of maternal compromise at this time. We did instruct the patient that the baby's heartbeat may have accelerations loose and therefore once in a while it may be as high as 170 when she does her Doppler. monitoring here is completely normal without evidence of compromise.)
== END 2020-05-25 19:57 | disposition home or self-care (01) ==
LOC: FBPOP 18:57
PROVIDERS: ATTEND Obstetrics & Gynecology
DX: O99.891 Other specified diseases and conditions complicating pregnancy (principal); M54.5 Low back pain; Z3A.28 28 weeks gestation of pregnancy
CPT/HCPCS: 59025; 99213

== ENCOUNTER 2020-06-14 19:56 | Outpatient (CLI) | payer OTHER ==
[2020-06-14 20:05] VITALS: BP 135/86; PULSE 112; TEMP 97.5
[2020-06-14 21:28] VITALS: RESP 18
--- NOTE | 2020-06-16 16:48 | P.MSEPDOC ---
Presenting Problems - Arrival Data Date of Arrival on Unit: 06/14/20 Time of Arrival on Unit: 19:56 Mode of Transport: Ambulatory - Complaint OB-Reason for Admission/Chief Complaint: Other Comment: High blood pressure at home Medical History - Information : 2 Para: 0 Term: 0 : 0 Abortions: Spontaneous or Elective: 0 Number of Living Children: 0 - Gestational Age Gestational Age by CARLEE (wks/days): 31 Weeks and 4 Days Review of Systems - Review of Systems Constitutional: No problems Breast: No problems ENT: No problems Cardiovascular: No problems Respiratory: No problems Gastrointestinal: No problems Genitourinary: No problems Musculoskeletal: No problems Neurological: No problems Skin: No problems Vital Signs - Temperature Temperature: 97.5 F Temperature Source: Temporal Artery Scan - Pulse Right Brachial Pulse Rate: 112 Pulse Assessment Method: Automatic Cuff - Respirations Respiratory Rate: 18 Oxygen Delivery Method: Room Air O2 Sat by Pulse Oximetry: 99 - Blood Pressure Right Arm Blood Pressure: 135/86 Blood Pressure Mean: 102 Blood Pressure Source: Automatic Cuff Medical Screen Scoring (Pre) - Cervical Exam Dilation: Exam Deferred Effacement: Exam Deferred Membranes: Intact - Uterine Contractions Frequency: > 5 minutes apart = 1 Duration: > 40 seconds = 2 Intensity: N/A - Maternal Vital Signs Maternal Temperature: N/A Maternal Blood Pressure: N/A Signs of Preeclampsia: N/A Maternal Respirations: N/A - Maternal Trauma Maternal Trauma: N/A - Assessment - Baby A Baseline FHR: 135 Heart Rate - NICHD Category: Category I (Normal) = 0 NST: Reactive Position: N/A Station: N/A - Total Score - Baby A Total Score - Baby A: 3 - Total Score - Baby B Total Score - Baby B: 3 - Total Score - Baby C Total Score - Baby C: 3 - Level of Risk - Baby A Level of Risk - Baby A: Low (0-5) - Level of Risk - Baby B Level of Risk - Baby B: Low (0-5) - Level of Risk - Baby C Level of Risk - Baby C: Low (0-5) Physician Notification (Pre) - Physician Notified Physician Notified Date: 06/14/20 Physician Notified Time: 20:58 New Order Received: Yes - Notification Comment Comment: Pt presented with c/o high blood pressure reading at home. Pt sates her apple watch notified her of her HR being over 120 for 10mins while at rest, so she took her BP. Pt is not symptomatic. Per pt, she does have a hx of tachycardia with a resting HR around 110. Pt's serial BPs during stay were WNL, reactive NST. Pt to DC home with follow up in office with Dr. Sweet. Disposition - Disposition OB Disposition: Discharge to home Discharge Date: 06/14/20 Discharge Time: 21:09 I agree with the RN Medical Screening Exam: Yes Risk & Benefit of care provided described in d/c instruction: Yes Diagnosis: GESTATIONAL HTN W/O SIGNIFICANT PROTEINURIA, THIRD TRIMESTER
== END 2020-06-14 21:09 | disposition home or self-care (01) ==
LOC: FBPOP 19:56
PROVIDERS: ATTEND Obstetrics & Gynecology
DX: O13.3 Gestational [pregnancy-induced] hypertension without significant proteinuria, third trimester (principal); Z3A.31 31 weeks gestation of pregnancy
CPT/HCPCS: 59025; 99213

== ENCOUNTER → 2020-07-15 | Outpatient (CLI) | payer OTHER ==
[2020-07-15 12:16] LABS: ALT 9 U/L (4-34); AST 20 U/L (14-36)
== END | disposition home or self-care (01) ==
LOC: LABWHC1 11:22
PROVIDERS: ATTEND Obstetrics & Gynecology
DX: O26.619 Liver and biliary tract disorders in pregnancy, unspecified trimester (principal)
CPT/HCPCS: 36415; 84450; 84460

== ENCOUNTER 2020-07-20 22:29 | Outpatient (CLI) | payer OTHER ==
[2020-07-20 23:39] VITALS: BP 125/78; PULSE 106; RESP 16; TEMP 97.2
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
== END 2020-07-20 23:03 | disposition home or self-care (01) ==
LOC: FBPOP 22:29
PROVIDERS: ATTEND Obstetrics & Gynecology
DX: O36.8121 Decreased fetal movements, second trimester, fetus 1 (principal); Z3A.36 36 weeks gestation of pregnancy
CPT/HCPCS: 59025; 99213

== ENCOUNTER 2020-07-27 18:23 | Emergency (ER) | payer OTHER ==
[2020-07-27 18:27] VITALS: TEMP 97.5
[2020-07-27] MEDS ORDERED: SODIUM CHLORIDE 0.9% 1,000 ML IV STA (19:00)
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
[2020-07-27 19:21] VITALS: RESP 18
[2020-07-27 19:38] LABS: Basophils # (A) 0.1 k/uL (0-0.2); Basophils % (A) 0 %; Eosinophils # (A) 0.2 k/uL (0-0.7); Eosinophils % (A) 2 %; HCT 32.8 % (34.0-46.0); HGB 10.5 gm/dL (11.4-16.0); Hypochromasia Slight; Lymphocytes % (A) 16 %; MCH 24.2 pg (25.0-35.0); MCV 75.4 fL (80.0-100.0); Mean Platelet Volume 6.9; Microcytosis Slight; Monocytes # (A) 0.8 k/uL (0-1.0); Monocytes % (A) 7 %; Neutrophils # (A) 8.8 k/uL (1.3-7.7); Neutrophils % (A) 73 %; Platelet Count 429 k/uL (150-450); Poikilocytosis Slight; RBC 4.35 m/uL (3.80-5.40); RDW 14.8 % (11.5-15.5)
[2020-07-27 19:39] LABS: Chloride 107 mmol/L (98-107)
[2020-07-27 19:41] LABS: ALT 7 U/L (4-34); AST 23 U/L (14-36); African American GFR (CKD) >90 (>60 ml/min/1.73 sqM); Albumin 3.4 g/dL (3.5-5.0); Alkaline Phosphatase 127 U/L (38-126); Anion Gap 5 mmol/L; Blood Urea Nitrogen 9 mg/dL (7-17); Calcium 8.7 mg/dL (8.4-10.2); Carbon Dioxide 22 mmol/L (22-30); Glucose 75 mg/dL (74-99); Non-African American GFR(CKD) >90 (>60 ml/min/1.73 sqM); Potassium 4.7 mmol/L (3.5-5.1); Sodium 134 mmol/L (137-145); Total Bilirubin 0.2 mg/dL (0.2-1.3); Total Protein 6.4 g/dL (6.3-8.2)
[2020-07-27 20:05] LABS: INR 0.8 (<1.2); Prothrombin Time 9.3 sec (9.0-12.0)
[2020-07-27 20:14] LABS: Partial Thromboplastin Time 21.6 sec (22.0-30.0)
--- NOTE | 2020-07-27 21:20 | CT ---
EXAMINATION TYPE: CT chest angio for PE DATE OF EXAM: 07/27/2020 COMPARISON: None HISTORY: Dyspnea. [address] DLP: 708 mGycm Automated exposure control for dose reduction was used. CONTRAST: Performed with IV Contrast, patient injected with 100ml mL of Isovue 370. There are 3-D post processed images. Lungs are clear of infiltrate. There is no pleural effusion or pneumothorax. Mediastinum is normal. T horacic aorta is intact. Heart size is normal. There is no pericardial effusion. There is normal contrast opacification of the pulmonary arteries. There are no filling defects. The t horacic spine is intact. The ribs are intact. Sternum is intact. IMPRESSION: Negative exam. No evidence of pulmonary embolism.
[2020-07-27 21:57] VITALS: BP 126/88; PULSE 100
== END 2020-07-27 21:57 | disposition home or self-care (01) ==
LOC: EC 18:23
DX: O99.513 Diseases of the respiratory system complicating pregnancy, third trimester (principal); R06.00 Dyspnea, unspecified; R79.89 Other specified abnormal findings of blood chemistry; O99.343 Other mental disorders complicating pregnancy, third trimester; F41.9 Anxiety disorder, unspecified; O99.013 Anemia complicating pregnancy, third trimester; Z3A.37 37 weeks gestation of pregnancy; Z79.899 Other long term (current) drug therapy; Z90.49 Acquired absence of other specified parts of digestive tract; Z98.890 Other specified postprocedural states; Z87.09 Personal history of other diseases of the respiratory system; Z80.9 Family history of malignant neoplasm, unspecified
CPT/HCPCS: 36415; 93005; 85379; 80053; 84484; 85025; 85610; 85730; 71275; Q9967; 96360; 99285

== ENCOUNTER 2020-08-05 06:13 | Inpatient (IN) | payer OTHER ==
[2020-08-03 15:11] VITALS: BMI 37.1
[2020-08-05] MEDS ORDERED: CITRIC ACID-SODIUM CITRATE 15 ML CUP PO ONE (06:39)
[2020-08-05 06:49] LABS: Basophils # (A) 0.1 k/uL (0-0.2); Basophils % (A) 0 %; Eosinophils # (A) 0.3 k/uL (0-0.7); Eosinophils % (A) 3 %; HCT 35.1 % (34.0-46.0); HGB 11.4 gm/dL (11.4-16.0); Lymphocytes # (A) 2.3 k/uL (1.0-4.8); Lymphocytes % (A) 18 %; MCH 24.4 pg (25.0-35.0); MCHC 32.3 g/dL (31.0-37.0); MCV 75.4 fL (80.0-100.0); Mean Platelet Volume 7.2; Microcytosis Slight; Monocytes # (A) 0.8 k/uL (0-1.0); Monocytes % (A) 7 %; Neutrophils # (A) 8.8 k/uL (1.3-7.7); Neutrophils % (A) 71 %; Platelet Count 454 k/uL (150-450); Poikilocytosis Slight; RBC 4.66 m/uL (3.80-5.40); RDW 15.3 % (11.5-15.5); WBC 12.5 k/uL (3.8-10.6)
[2020-08-05] MEDS: LACTATED RINGERS 1,000 ML IV SCH ×3 (06:58→18:39)
[2020-08-05] MEDS ORDERED: NALOXONE 0.4 MG/ML 1 ML VIAL IV PRN ×2 (07:45→08:49)
[2020-08-05] MEDS ORDERED: NALBUPHINE 10 MG/ML (1 ML AMP) IV PRN (07:45)
[2020-08-05] MEDS ORDERED: OXYTOCIN 10 UNIT/ML 1 ML VIAL ONE (07:59)
[2020-08-05] MEDS ORDERED: MORPHINE SULFATE (PF) 0.3 MG/0.3 ML SYR ONE (07:59)
[2020-08-05] MEDS ORDERED: diphenhydrAMINE 25 MG CAP PO PRN (08:49)
[2020-08-05] MEDS ORDERED: diphenhydrAMINE 50 MG/ML 1 ML VIAL IVP PRN ×2 (08:49)
[2020-08-05] MEDS ORDERED: LANOLIN CREAM 5 GM TUBE TOPICAL PRN (08:49)
[2020-08-05] MEDS ORDERED: ZOLPIDEM 5 MG TAB PO PRN (08:49)
[2020-08-05] MEDS ORDERED: METOCLOPRAMIDE 5 MG/ML 2 ML VIAL IVP PRN (08:49)
[2020-08-05] MEDS ORDERED: ONDANSETRON 4 MG/2 ML VIAL IVP PRN (08:49)
[2020-08-05] MEDS ORDERED: diphenhydrAMINE 50 MG CAP PO PRN (08:49)
[2020-08-05] MEDS ORDERED: OXYTOCIN 30 UNITS/500 ML NS 30 UNIT in SALINE 1 500ML.BAG IV SCH (09:00)
[2020-08-05] MEDS: ACETAMINOPHEN TAB 500 MG TAB PO SCH ×3 (12:29→23:29)
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
--- NOTE | 2020-08-05 12:35 | P.OP ---
Date of Procedure: 08/05/20 Preoperative Diagnosis: 1. 39 weeks 2. recent back surgery Postoperative Diagnosis: 1. 39 weeks 2. recent back surgery Procedure(s) Performed: primary low transverse Anesthesia: spinal Surgeon: Camelia Sweet Placement Interviewer #1: Juan Cueva Estimated Blood Loss (ml): 300 IV fluids (ml): 1,000 Urine output (ml): 100 Pathology: none sent Condition: stable Disposition: floor Operative Findings: viable male. 8,9, weight 6#15oz. Description of Procedure: Patient was taken to the operating room where spinal anesthesia was found be adequate. She was prepped and draped in normal sterile fashion in dorsal supine position with a leftward tilt. Pfannenstiel skin incision was made the scalpel and carried through to the underlying layer of fascia with the scalpel. Fascia was incised in midline and carried bilaterally with the Lozada scissors. The superior aspect of the fascial incision was grasped with Yves clamps elevated and the underlying rectus muscles dissected off with the Lozada's. Attention was then turned to inferior aspect of same incision which in a similar fashion was grasped tented up and the underlying rectus muscles dissected off with the Lozada's. The rectus muscles were the midline and the peritoneum was identified tented up and entered sharply with the scalpel. The incision was extended superiorly and inferiorly with good visualization of the bladder. The bladder blade was inserted and the vesicouterine peritoneum was incised the Metzenbaums then carried bilaterally and bladder flap created digitally. A low transverse incision was then made on the uterus with the scalpel. This was carried bilaterally and digital manner. Infant's head delivered atraumatically, nose and mouth bulb suctioned, cord clamped and cut, infant handed off to waiting nurses. Apgars 8,9, weight 6 lbs. 15 oz. Placenta delivered manually, intact with three-vessel cord. The uterus is exteriorized and cleared of all clots and debris. The uterine incision was closed with 0 Vicryl in a running locked fashion. Second layer of the same sutures used in imbricating fashion to obtain excellent hemostasis. Bladder flap was then reapproximated using 2-0 Vicryl in a running fashion. Both ovaries and tubes appeared normal. The uterus was placed back into the abdomen. The peritoneum was reapproximated using 2-0 Vicryl in a running fashion. The muscles were reapproximated using 2- 0 Vicryl in interrupted fashion. The fascia was reapproximated using 0 Vicryl in a running fashion. The subcutaneous tissues closed with 3-0 Vicryl running fashion. The skin was closed narendra. Patient tolerated the procedure well, sponge and instrument counts were correct times 2 and she was taken to the recovery room in stable condition.
[2020-08-05] MEDS: KETOROLAC 15 MG/ML 1 ML VIAL IVP SCH ×2 (15:33→20:28)
[2020-08-05] MEDS: SENNOSIDES-DOCUSATE SODIUM 1 EACH TAB PO SCH (20:29)
[2020-08-06] MEDS: KETOROLAC 15 MG/ML 1 ML VIAL IVP SCH ×3 (03:41→22:04)
[2020-08-06] MEDS: ACETAMINOPHEN TAB 500 MG TAB PO SCH ×3 (06:32→22:02)
[2020-08-06 06:39] LABS: Basophils % (A) 0 %; Eosinophils # (A) 0.3 k/uL (0-0.7); Eosinophils % (A) 3 %; HCT 28.8 % (34.0-46.0); Hypochromasia Slight; Lymphocytes # (A) 1.8 k/uL (1.0-4.8); Lymphocytes % (A) 16 %; MCH 24.9 pg (25.0-35.0); MCHC 32.8 g/dL (31.0-37.0); MCV 75.8 fL (80.0-100.0); Mean Platelet Volume 6.9; Microcytosis Slight; Monocytes # (A) 0.7 k/uL (0-1.0); Monocytes % (A) 6 %; Neutrophils # (A) 8.3 k/uL (1.3-7.7); Neutrophils % (A) 73 %; Platelet Count 358 k/uL (150-450); Poikilocytosis Slight; RBC 3.81 m/uL (3.80-5.40); RDW 15.4 % (11.5-15.5); WBC 11.3 k/uL (3.8-10.6)
--- NOTE | 2020-08-06 06:41 | P.PN ---
Progress Note - Text Progress Note Date: 08/06/20 Postoperative day 1 status post section under spinal anesthesia, and intrathecal morphine given for postoperative analgesia, patient doing well, there is no anesthesia related complications Patient had no headache, vital signs stable Assessment and plan = postop day 1 status post , doing well there is no anesthesia related complication
[2020-08-06 06:43] LABS: HGB 9.5 gm/dL (11.4-16.0)
--- NOTE | 2020-08-06 07:28 | P.PNOBGPC ---
Subjective - Subjective Principal diagnosis: Status post primary low transverse postop day #1 Interval history: Patient seen and examined. Denies nausea, vomiting, chest pain, shortness of breath or calf pain. Patient reports: Reports appetite normal, Reports voiding normally, Reports pain well controlled, Reports ambulating normally : doing well Objective - Vital Signs Latest vital signs: Vital Signs Temp Pulse Resp BP Pulse Ox 08/06/20 06:00 16 08/06/20 03:58 98.3 F 94 16 105/71 98 08/06/20 03:57 16 08/06/20 01:58 16 08/05/20 23:47 98.6 F 90 16 110/68 08/05/20 23:46 100 08/05/20 23:45 16 08/05/20 22:00 16 08/05/20 19:56 98.1 F 95 16 102/64 98 08/05/20 18:00 18 08/05/20 16:00 98.1 F 82 18 113/66 95 08/05/20 14:00 18 08/05/20 12:45 98 08/05/20 12:00 98.6 F 99 16 131/79 99 08/05/20 10:50 87 18 106/63 99 08/05/20 10:45 18 08/05/20 10:20 103 H 18 102/59 99 08/05/20 10:03 94 18 100/58 99 08/05/20 09:35 94 18 116/58 99 08/05/20 09:20 90 16 113/59 99 08/05/20 09:05 98 18 123/65 100 08/05/20 08:50 97.6 F 90 18 118/61 100 08/05/20 08:45 16 99 08/05/20 07:45 18 99 Intake and Output 08/05/20 08/06/20 08/06/20 22:59 06:59 14:59 Output Total 550 150 Balance -550 -150 Output: Urine 550 150 Uretheral (Field) 550 - Exam Lungs: bilateral: normal Chest: Normal S1, Normal S2 Extremities: Present: normal Abdomen: Present: normal appearance, soft. Absent: distention, tenderness Incision: Present: normal, dry, intact Uterus: Present: normal, firm - Labs Labs: Abnormal Lab Results - Last 24 Hours (Table) 08/06/20 Range/Units 06:07 WBC 11.3 H (3.8-10.6) k/uL Hgb 9.5 L D (11.4-16.0) gm/dL Hct 28.8 L (34.0-46.0) % MCV 75.8 L (80.0-100.0) fL MCH 24.9 L (25.0-35.0) pg Neutrophils # 8.3 H (1.3-7.7) k/uL Assessment and Plan (1) Closed L2 vertebral fracture Current Visit: No Status: Resolved Code(s): S32.029A - UNSP FRACTURE OF SECOND LUMBAR VERTEBRA, INIT FOR CLOS FX SNOMED Code(s): 27306113283447684 (2) Status post primary low transverse section Current Visit: Yes Status: Acute Code(s): Z98.891 - HISTORY OF UTERINE SCAR FROM PREVIOUS SURGERY SNOMED Code(s): 971447802 Plan: 1. Increase ambulation 2. By mouth pain medication 3. Regular diet
[2020-08-06] MEDS: SENNOSIDES-DOCUSATE SODIUM 1 EACH TAB PO SCH ×2 (10:03→21:28)
[2020-08-06] MEDS: HYDROmorphone 2 MG TAB PO PRN ×2 (10:03→16:44)
[2020-08-06] MEDS: IBUPROFEN 600 MG TAB PO SCH ×3 (13:20→22:02)
[2020-08-06] MEDS: LACTATED RINGERS 1,000 ML IV SCH ×3 (22:01→22:30)
[2020-08-07] MEDS: HYDROmorphone 2 MG TAB PO PRN (00:13)
[2020-08-07] MEDS: ACETAMINOPHEN TAB 500 MG TAB PO SCH ×2 (00:14→06:30)
[2020-08-07] MEDS: LACTATED RINGERS 1,000 ML IV SCH (06:30)
--- NOTE | 2020-08-07 08:08 | P.DS ---
Providers Date of admission: 08/05/20 06:13 Expected date of discharge: 08/07/20 Attending physician: Camelia Sweet Primary care physician: Stated None - Discharge Diagnosis(es) (1) Status post primary low transverse section Current Visit: Yes Status: Acute Hospital Course: Presented for primary low transverse . She underwent with this procedure without complication. She denies nausea, vomiting, chest pain, shortness of breath or calf pain. Her pain is not that well-controlled on Dilaudid 2 mg by mouth. I'm going to change her to [place] and Motrin to go home with. Her incision is clean, dry, intact. She could be discharged home post operative day #2 in stable condition to follow-up with me in one week. Plan - Discharge Summary Discharge Rx Participant: Yes New Discharge Prescriptions: New Ibuprofen [Motrin] 600 mg PO Q6HR PRN #30 tab PRN Reason: Mild Pain Or Fever >= 100.5 HYDROcodone/APAP 7.5-325MG [[place] 7.5-325] 1 tab PO Q6HR PRN 3 Days #12 tab PRN Reason: Pain No Action Pnv No.95/Ferrous Fum/Folic AC [ Multivitamin Tablet] 1 tab PO DAILY Acetaminophen Tab [Tylenol] 500 mg PO DAILY PRN PRN Reason: Fever And/ Or Pain Discharge Medication List Pnv No.95/Ferrous Fum/Folic AC [ Multivitamin Tablet] 1 tab PO DAILY 06/14/20 [History] Acetaminophen Tab [Tylenol] 500 mg PO DAILY PRN 07/27/20 [History] HYDROcodone/APAP 7.5-325MG [[place] 7.5-325] 1 tab PO Q6HR PRN 3 Days #12 tab 08/07/20 [Rx] Ibuprofen [Motrin] 600 mg PO Q6HR PRN #30 tab 08/07/20 [Rx] Follow up Appointment(s)/Referral(s): Camelia Sweet DO [Doctor of Osteopathic Medicine] - 1 Week Discharge Disposition: HOME SELF-CARE
[2020-08-07] MEDS: IBUPROFEN 600 MG TAB PO SCH (08:11)
[2020-08-07 08:52] VITALS: BP 121/80; PULSE 111; RESP 16; TEMP 98.4
== END 2020-08-07 11:42 | disposition home or self-care (01) | DRG 788 ==
LOC: 4FBP 06:13
PROVIDERS: ADMIT Obstetrics & Gynecology; ATTEND Obstetrics & Gynecology
PROC: 10D00Z1 Extraction of Products of Conception, Low, Open Approach (ICD-10-PCS; principal; 2020-08-05 08:00)
DX: O99.334 Smoking (tobacco) complicating childbirth (principal); F32.9 Major depressive disorder, single episode, unspecified; O99.344 Other mental disorders complicating childbirth; F41.9 Anxiety disorder, unspecified; F17.290 Nicotine dependence, other tobacco product, uncomplicated; Z37.0 Single live birth; Z3A.39 39 weeks gestation of pregnancy; Z79.899 Other long term (current) drug therapy; Z87.828 Personal history of other (healed) physical injury and trauma; Z90.49 Acquired absence of other specified parts of digestive tract; Z98.890 Other specified postprocedural states; Z87.81 Personal history of (healed) traumatic fracture; Z80.49 Family history of malignant neoplasm of other genital organs
CPT/HCPCS: 85025; 86850; 86900; 86901

== ENCOUNTER 2022-01-28 18:10 | Outpatient (CLI) | payer OTHER ==
[2022-01-28 18:53] VITALS: BP 131/85; PULSE 114; RESP 16; TEMP 97
--- NOTE | 2022-01-30 07:02 | P.MSEPDOC ---
Presenting Problems - Arrival Data Date of Arrival on Unit: 01/28/22 Time of Arrival on Unit: 18:10 Mode of Transport: Ambulatory - Complaint OB-Reason for Admission/Chief Complaint: Rule Out PROM Comment: 01/26 2100 questionable ROM Medical History - Information : 3 Para: 1 Term: 1 : 0 Abortions: Spontaneous or Elective: 1 Number of Living Children: 1 - Gestational Age Gestational Age by CARLEE (wks/days): 33 Weeks and 6 Days Review of Systems - Review of Systems Constitutional: No problems Breast: No problems ENT: No problems Cardiovascular: No problems Respiratory: No problems Gastrointestinal: No problems Genitourinary: No problems Musculoskeletal: No problems Neurological: No problems Skin: No problems Vital Signs - Temperature Temperature: 97.0 F Temperature Source: Temporal Artery Scan - Pulse Brachial Pulse Rate: 114 Pulse Assessment Method: Automatic Cuff - Respirations Respiratory Rate: 16 Oxygen Delivery Method: Room Air O2 Sat by Pulse Oximetry: 99 - Blood Pressure Right Arm Blood Pressure: 131/85 Blood Pressure Mean: 100 Blood Pressure Source: Automatic Cuff Medical Screen Scoring - Uterine Contractions Frequency From (mins): 0 Frequency To (mins): 0 Duration From (seconds): 0 Duration To (seconds): 0 - Assessment - Baby A Baseline FHR: 135 Heart Rate - NICHD Category: Category I (Normal) NST: Reactive Physician Notification - Physician Notified Physician Notified Date: 01/28/22 Physician Notified Time: 18:37 Physician: Flo De La Rosa New Order Received: Yes (discharge to home) Maternal Triage Index - Urgent/Priority 2 Urgent Priority 2: Yes Provider Notified: Flo De La Rosa Provider Notified Time: 18:37 Criteria Met for Priority 2: 34 weeks, questionable ROM with negative amnisure Disposition - Disposition OB Disposition: Triage, Discharge to home, Written follow up instructions reviewed Discharge Date: 01/28/22 Discharge Time: 18:40 I agree with the RN Medical Screening Exam: Yes Case reviewed; plan agreed upon as documented in EMR&OBIX.: Yes Diagnosis: FALSE LABOR BEFORE 37 COMPLETED WEEKS OF GEST, THIRD TRI
== END 2022-01-28 18:40 | disposition home or self-care (01) ==
LOC: FBPOP 18:10
PROVIDERS: ATTEND Obstetrics & Gynecology
DX: O47.03 False labor before 37 completed weeks of gestation, third trimester (principal); Z3A.33 33 weeks gestation of pregnancy
CPT/HCPCS: 59025; 84112; 99213

== ENCOUNTER 2022-02-04 15:10 | Outpatient (CLI) | payer OTHER ==
[2022-02-05 01:03] VITALS: RESP 16; TEMP 97.5
--- NOTE | 2022-02-08 07:33 | P.MSEPDOC ---
Presenting Problems - Arrival Data Date of Arrival on Unit: 02/04/22 Time of Arrival on Unit: 15:10 Mode of Transport: Ambulatory - Complaint OB-Reason for Admission/Chief Complaint: Headache Comment: pt states reason for visit is prolonged headache since 9 am not relieved after taking tylenol. She took her own BP at home and got 138/92 and 142/96. talked to Dr nancy and they told her to come in for preeclapsia work up. states had pain center abdomen right under sternum yesterday for about 30 min but none today Medical History - Information : 3 Para: 1 Term: 1 Abortions: Spontaneous or Elective: 1 - Gestational Age Gestational Age by CARLEE (wks/days): 35 Weeks and 0 Days Review of Systems - Review of Systems Constitutional: No problems Breast: No problems ENT: No problems Cardiovascular: No problems Respiratory: No problems Gastrointestinal: No problems Genitourinary: No problems Musculoskeletal: No problems Neurological: No problems Skin: No problems Vital Signs - Temperature Temperature: 97.5 F Temperature Source: Oral - Respirations Respiratory Rate: 16 Oxygen Delivery Method: Room Air O2 Sat by Pulse Oximetry: 98 Medical Screen Scoring - Uterine Contractions Frequency From (mins): 0 Frequency To (mins): 0 - Assessment - Baby A Baseline FHR: 125 Heart Rate - NICHD Category: Category I (Normal) NST: Reactive Physician Notification - Physician Notified Physician Notified Date: 02/04/22 Physician Notified Time: 15:59 Physician: dr Sweet New Order Received: Yes - Notification Comment Comment: discharge Maternal Triage Index - Maternal Triage Index Presenting for scheduled procedure w/no complaint: No - Stat/Priority 1 Stat Priority 1: No - Urgent/Priority 2 Urgent Priority 2: No - Prompt/Priority 3 Prompt Priority 3: No - Non-Urgent/Priority 4 Non-Urgent Priority 4: Yes Criteria Met for Priority 4: headache elevated bp at home Disposition - Disposition OB Disposition: Discharge to home Discharge Date: 02/05/22 Discharge Time: 16:05 I agree with the RN Medical Screening Exam: Yes Case reviewed; plan agreed upon as documented in EMR&OBIX.: Yes Diagnosis: HEADACHE, UNSPECIFIED
== END 2022-02-04 16:05 | disposition home or self-care (01) ==
LOC: FBPOP 15:10
PROVIDERS: ATTEND Obstetrics & Gynecology
DX: O26.893 Other specified pregnancy related conditions, third trimester (principal); R51.9 Headache, unspecified; Z3A.35 35 weeks gestation of pregnancy
CPT/HCPCS: 59025; 99213

== ENCOUNTER 2022-03-08 05:52 | Inpatient (IN) | payer OTHER ==
[2022-03-08] MEDS ORDERED: CITRIC ACID-SODIUM CITRATE 15 ML CUP PO ONE (06:16)
[2022-03-08] MEDS: LACTATED RINGERS 1,000 ML IV SCH ×2 (06:45→14:15)
[2022-03-08 07:20] LABS: Anisocytosis Slight; Basophils % (A) 0 %; Eosinophils # (A) 0.4 k/uL (0-0.7); Eosinophils % (A) 3 %; HCT 35.9 % (34.0-46.0); HGB 11.6 gm/dL (11.4-16.0); Hypochromasia Slight; Lymphocytes # (A) 2.7 k/uL (1.0-4.8); Lymphocytes % (A) 25 %; MCH 25.2 pg (25.0-35.0); MCHC 32.3 g/dL (31.0-37.0); Mean Platelet Volume 7.5; Microcytosis Slight; Monocytes # (A) 0.6 k/uL (0-1.0); Monocytes % (A) 6 %; Neutrophils # (A) 6.7 k/uL (1.3-7.7); Neutrophils % (A) 63 %; Platelet Count 361 k/uL (150-450); RBC 4.61 m/uL (3.80-5.40); RDW 16.8 % (11.5-15.5); WBC 10.6 k/uL (3.8-10.6)
--- NOTE | 2022-03-08 08:39 | P.OP ---
Date of Procedure: 03/08/22 Preoperative Diagnosis: 1. at 39 weeks 3 days 2. previous Postoperative Diagnosis: same Procedure(s) Performed: Repeat Low transverse Anesthesia: spinal Surgeon: Camelia Sweet Landscape Designer #1: Flo De La Rosa Estimated Blood Loss (ml): 250 IV fluids (ml): 500 Urine output (ml): 200 Pathology: none sent Condition: stable Disposition: floor Operative Findings: Normal uterus, tubes, ovaries. Viable male, Apgars 8, 9, weight 8 lbs. 3 oz. Description of Procedure: Patient was taken to the operating room where spinal anesthesia was found be adequate. She was prepped and draped in normal sterile fashion in dorsal supine position with a leftward tilt. Pfannenstiel skin incision was made the scalpel and carried through to the underlying layer of fascia with the scalpel. Fascia was incised in midline and carried bilaterally with the Lozada scissors. The superior aspect of the fascial incision was grasped with Mccune clamps elevated and the underlying rectus muscles dissected off with the Lozada's. Attention was then turned to inferior aspect of same incision which in a similar fashion was grasped tented up and the underlying rectus muscles dissected off with the Lozada's. The rectus muscles were the midline and the peritoneum was identified tented up and entered sharply with the scalpel. The incision was extended superiorly and inferiorly with good visualization of the bladder. The bladder blade was inserted and the vesicouterine peritoneum was incised the Metzenbaums then carried bilaterally and bladder flap created digitally. A low transverse incision was then made on the uterus with the scalpel. This was carried bilaterally and digital manner. 's head delivered atraumatically, nose and mouth bulb suctioned, cord clamped and cut, handed off to waiting nurses. Apgars 8,9, weight 8 lbs. 3 oz. Placenta delivered manually, intact with three-vessel cord. The uterus is exteriorized and cleared of all clots and debris. The uterine incision was closed with 0 Vicryl in a running locked fashion. Second layer of the same sutures used in imbricating fashion to obtain excellent hemostasis. Both ovaries and tubes appeared normal. The uterus was placed back into the abdomen. The peritoneum was reapproximated using 2-0 Vicryl in a running fashion. The muscles were reapproximated using 2- 0 Vicryl in interrupted fashion. The fascia was reapproximated using 0 Vicryl in a running fashion. The subcutaneous tissues closed with 3-0 Vicryl running fashion. The skin was closed narendra. Patient tolerated the procedure well, sponge and instrument counts were correct times 2 and she was taken to the recovery room in stable condition.
[2022-03-08] MEDS ORDERED: LANOLIN CREAM 5 GM TUBE TOPICAL PRN (08:40)
[2022-03-08] MEDS ORDERED: NALOXONE 0.4 MG/ML 1 ML VIAL IV PRN ×2 (08:40→08:47)
[2022-03-08] MEDS ORDERED: ZOLPIDEM 5 MG TAB PO PRN (08:40)
[2022-03-08] MEDS ORDERED: diphenhydrAMINE 50 MG CAP PO PRN (08:40)
[2022-03-08] MEDS ORDERED: diphenhydrAMINE 25 MG CAP PO PRN (08:40)
[2022-03-08] MEDS ORDERED: METOCLOPRAMIDE 5 MG/ML 2 ML VIAL IVP PRN (08:40)
[2022-03-08] MEDS ORDERED: diphenhydrAMINE 50 MG/ML 1 ML VIAL IVP PRN ×3 (08:40→08:47)
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
[2022-03-08] MEDS ORDERED: OXYTOCIN 30 UNITS/500 ML NS 30 UNIT in SALINE 1 500ML.BAG IV SCH (08:45)
[2022-03-08] MEDS ORDERED: ONDANSETRON 4 MG/2 ML VIAL IVP PRN (08:47)
--- NOTE | 2022-03-08 08:47 | P.ANPRN ---
Procedure Note - Anesthesia - Epidural/Spinal Spinal Time Out Performed: Yes Date of Procedure: 03/08/22 Procedure Start Time: 07:55 Procedure Stop Time: 08:03 Location of Patient: [facility] Indication: Acute Post-Operative Pain, Requested by Surgeon Sedation Type: Awake Preparation: Sterile Dressing Position: Sitting Catheter: None Needle Guage: 25 Injectate: Other (300 g of preservative free morphine injected along with 0.75% bupivacaine) Blood Aspirated: No Pain Paresthesia on Injection Noted: No Events: Uneventful and Well Tolerated
[2022-03-08 09:32] VITALS: RESP 16
[2022-03-08] MEDS: KETOROLAC 15 MG/ML 1 ML VIAL IVP SCH ×2 (14:06→20:22)
[2022-03-08] MEDS: ONDANSETRON 4 MG/2 ML VIAL IVP PRN ×2 (16:02→22:08)
[2022-03-08] MEDS: SENNOSIDES-DOCUSATE SODIUM 1 EACH TAB PO SCH (20:22)
[2022-03-09] MEDS: KETOROLAC 15 MG/ML 1 ML VIAL IVP SCH ×2 (03:57→19:58)
[2022-03-09] MEDS: ACETAMINOPHEN TAB 500 MG TAB PO SCH ×4 (04:12→22:46)
[2022-03-09] MEDS: IBUPROFEN 600 MG TAB PO SCH ×3 (04:13→19:55)
[2022-03-09 05:57] LABS: Anisocytosis Slight; Basophils % (A) 0 %; Eosinophils # (A) 0.3 k/uL (0-0.7); Eosinophils % (A) 3 %; HCT 32.9 % (34.0-46.0); HGB 10.3 gm/dL (11.4-16.0); Hypochromasia Moderate; Lymphocytes # (A) 1.5 k/uL (1.0-4.8); Lymphocytes % (A) 15 %; MCH 24.7 pg (25.0-35.0); MCHC 31.4 g/dL (31.0-37.0); MCV 78.7 fL (80.0-100.0); Mean Platelet Volume 7.6; Microcytosis Slight; Monocytes # (A) 0.4 k/uL (0-1.0); Monocytes % (A) 4 %; Neutrophils # (A) 7.7 k/uL (1.3-7.7); Neutrophils % (A) 76 %; Platelet Count 266 k/uL (150-450); RBC 4.18 m/uL (3.80-5.40); WBC 10.1 k/uL (3.8-10.6)
--- NOTE | 2022-03-09 07:26 | P.PNOBGPC ---
Subjective - Subjective Principal diagnosis: S/P RLTCS Interval history: Patient seen and examined. Denies nausea, vomiting, chest pain, shortness of breath or any calf pain. Patient reports: Reports appetite normal, Reports voiding normally, Reports pain well controlled, Reports ambulating normally [place]: doing well Objective - Vital Signs Latest vital signs: Vital Signs Temp Pulse Resp BP Pulse Ox 03/08/22 22:16 16 03/08/22 22:00 98 03/08/22 21:00 98.1 F 95 16 117/78 03/08/22 20:00 98.1 F 95 16 117/78 03/08/22 18:59 16 03/08/22 16:00 97.6 F 88 16 115/72 03/08/22 15:00 97 F L 78 16 114/64 99 03/08/22 13:00 97.4 F L 99 16 111/61 98 03/08/22 11:05 16 98 03/08/22 10:50 84 16 132/90 97 03/08/22 10:15 97.5 F L 80 16 101/67 98 03/08/22 09:47 82 16 105/65 97 03/08/22 09:30 80 16 95/63 98 03/08/22 09:15 83 16 109/77 97 03/08/22 09:00 79 16 109/57 97 03/08/22 08:45 97.1 F L 88 16 95/50 99 Intake and Output 03/08/22 03/09/22 03/09/22 22:59 06:59 14:59 Output Total 320 450 Balance -320 -450 Output: Urine 300 200 Estimated Blood Loss 20 250 - Exam Lungs: bilateral: normal Chest: Normal S1, Normal S2 Extremities: Present: normal Abdomen: Present: normal appearance, soft. Absent: distention, tenderness Incision: Present: normal, dry, intact Uterus: Present: normal, firm - Labs Labs: Abnormal Lab Results - Last 24 Hours (Table) 03/09/22 Range/Units 05:34 Hgb 10.3 L (11.4-16.0) gm/dL Hct 32.9 L (34.0-46.0) % MCV 78.7 L (80.0-100.0) fL MCH 24.7 L (25.0-35.0) pg RDW 17.0 H (11.5-15.5) % Assessment and Plan (1) 39 weeks gestation of Current Visit: Yes Status: Resolved Code(s): Z3A.39 - 39 WEEKS GESTATION OF SNOMED Code(s): 84584423 (2) Previous section Current Visit: Yes Status: Resolved Code(s): Z98.891 - HISTORY OF UTERINE SCAR FROM PREVIOUS SURGERY SNOMED Code(s): 771547262 (3) Status post repeat low transverse section Current Visit: Yes Status: Acute Code(s): Z98.891 - HISTORY OF UTERINE SCAR FROM PREVIOUS SURGERY SNOMED Code(s): 721990141 Plan: 1. cont po care
[2022-03-09] MEDS: SENNOSIDES-DOCUSATE SODIUM 1 EACH TAB PO SCH ×2 (08:26→19:55)
--- NOTE | 2022-03-09 08:38 | P.PN ---
Progress Note - Text Progress Note Date: 03/09/22 (0603) Anesthesia Postop day 1 Subjective: Status Post section with Duramorph. Patient seen and examined. Mild itching. VAS 5 out of 10rest able. No nausea or vomiting. Mild pruritus tolerable.. Afebrile. Gross lower extremity strength intact. Without apparent anesthetic complications. Objective: Vital signs reviewed Heart: Regular Rate Lungs: Good chest excursion Abdomen: Appears nondistended Assessment: Status post with Duramorph postop day 1 Plan: Continue current care with your medical management.
[2022-03-09] MEDS ORDERED: ONDANSETRON 4 MG TAB PO PRN (19:30)
[2022-03-10] MEDS: IBUPROFEN 600 MG TAB PO SCH ×3 (03:19→11:11)
[2022-03-10] MEDS: KETOROLAC 15 MG/ML 1 ML VIAL IVP SCH ×3 (03:20→12:05)
[2022-03-10] MEDS: ACETAMINOPHEN TAB 500 MG TAB PO SCH ×2 (04:58→12:15)
[2022-03-10] MEDS: SENNOSIDES-DOCUSATE SODIUM 1 EACH TAB PO SCH (08:41)
--- NOTE | 2022-03-10 08:54 | P.DS ---
Providers Date of admission: 03/08/22 05:52 Expected date of discharge: 03/10/22 Attending physician: Camelia Sweet Primary care physician: Stated None - Discharge Diagnosis(es) (1) 39 weeks gestation of Current Visit: Yes Status: Resolved (2) Previous section Current Visit: Yes Status: Resolved (3) Status post repeat low transverse section Current Visit: Yes Status: Acute Hospital Course: Patient presented for repeat low transverse . She underwent this procedure without Patient. Post operative course was uneventful. She denies nausea, vomiting, chest pain, shortness of breath or any calf pain. Patient's pain is well-controlled. She will be discharged home post operative day #2 in stable condition to follow-up with me in one week. Plan - Discharge Summary New Discharge Prescriptions: New Ibuprofen [Motrin] 600 mg PO Q6H #30 tab oxyCODONE HCL [OxyIR] 10 mg PO Q4HR PRN #18 tab PRN Reason: Pain Scale 7 - 10 No Action Pnv No.95/Ferrous Fum/Folic AC [ Multivitamin Tablet] 1 tab PO DAILY Aspirin [Adult Low Dose Aspirin EC] 81 mg PO DAILY Discharge Medication List Pnv No.95/Ferrous Fum/Folic AC [ Multivitamin Tablet] 1 tab PO DAILY 06/14/20 [History] Aspirin [Adult Low Dose Aspirin EC] 81 mg PO DAILY 01/28/22 [History] Ibuprofen [Motrin] 600 mg PO Q6H #30 tab 03/10/22 [Rx] oxyCODONE HCL [OxyIR] 10 mg PO Q4HR PRN #18 tab 03/10/22 [Rx] Follow up Appointment(s)/Referral(s): Camelia Sweet DO [Doctor of Osteopathic Medicine] - 03/17/22 9:00 am (PP 04/19/22 @3:45) Discharge Disposition: HOME SELF-CARE
[2022-03-10 10:29] VITALS: BP 108/66; PULSE 92; TEMP 97.8
== END 2022-03-10 12:35 | disposition home or self-care (01) | DRG 788 ==
LOC: 4FBP 05:52
PROVIDERS: ADMIT Obstetrics & Gynecology; ATTEND Obstetrics & Gynecology
PROC: 4A0HXCZ Measurement of Products of Conception, Cardiac Rate, External Approach (ICD-10-PCS; 2022-03-08)
PROC: 10D00Z1 Extraction of Products of Conception, Low, Open Approach (ICD-10-PCS; principal; 2022-03-08 08:00)
DX: O34.211 Maternal care for low transverse scar from previous cesarean delivery (principal); O99.73 Diseases of the skin and subcutaneous tissue complicating the puerperium; O99.52 Diseases of the respiratory system complicating childbirth; F32.A Depression, unspecified; F41.9 Anxiety disorder, unspecified; L29.9 Pruritus, unspecified; O99.344 Other mental disorders complicating childbirth; J40 Bronchitis, not specified as acute or chronic; Z37.0 Single live birth; Z3A.39 39 weeks gestation of pregnancy; Z79.82 Long term (current) use of aspirin; Z87.828 Personal history of other (healed) physical injury and trauma; Z90.49 Acquired absence of other specified parts of digestive tract
CPT/HCPCS: 85025; 86850; 86900; 86901

== ENCOUNTER → 2024-04-13 | Outpatient (CLI) | payer BC ==
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
== END | disposition home or self-care (01) ==
LOC: RADMRIMAIN 10:33
PROVIDERS: ATTEND Student in an Organized Health Care Education/Training Program
DX: M54.50 Low back pain, unspecified (principal); S32.029S Unspecified fracture of second lumbar vertebra, sequela; G89.29 Other chronic pain; Z87.828 Personal history of other (healed) physical injury and trauma
CPT/HCPCS: 72148